=== PATIENT | female | born 1955 | race Caucasian/White ===

== ENCOUNTER → 2018-03-04 | Outpatient (CLI) | payer OTHER ==
[~2018-03-04] MED LIST: AMIT25; AMIT50; AMIT50 PO; AMITRIPTYLINE PO; ASPI325; ASPI325 PO; ASPI325B; ASPI81EC PO; ATEN50; ATEN50 PO; CLON1 PO; CLOP75; CLOP75 PO; DIAZ5; ENOX40I SC; FLUO10 PO; FLUO20 PO; GABA100 PO; HYDACE10B PO; HYDACE5 PO; HYDACE5325 PO; IRON325 MG PO; ISOMON30; ISOMON30 PO; LEVFLO500 PO; LOVA40; MULVITMIND PO; NIAC500; NITR.4SL SL; OXYACE5T PO; RANI150; RANI150 PO; ROSU10TA PO; ZOLP5 PO
== END | disposition home or self-care (01) ==
LOC: PLD 07:23 → LAB SHORT 07:23
DX: L30.9 Dermatitis, unspecified (principal); L40.9 Psoriasis, unspecified; R70.0 Elevated erythrocyte sedimentation rate; R79.82 Elevated C-reactive protein (CRP); R21 Rash and other nonspecific skin eruption
CPT/HCPCS: 88305; 88312

== ENCOUNTER 2018-05-12 02:22 | Day surgery (SDC) | payer OTHER ==
[~2018-05-12] VITALS: Ht 167.6 cm; Wt 84.0 kg
[~2018-05-12 02:22] MED LIST changes: +ALBU90OI INH; +AMLO5 PO; +ATOR40TA PO; +CLON.1 PO; +GABA400 PO; +LISI5 PO; +METF500C PO; +METO50 PO; +VENL150ER PO
--- NOTE | 2018-05-12 09:00 | NUR ---
PT BACK TO RECOVERY ROOM POST PROCEDURE. SLEEPING, ROUSES EASILY TO VERBAL STIMULI. VSS. RIGHT GROIN SITE C/D/I, TEGADERM IN PLACE. CALL LIGHT IN REACH.
--- NOTE | 2018-05-12 10:17 | NUR ---
PT DOZING INTERMITTENTLY. VSS. RIGHT GROIN SITE REMAINS C/D/I. CALL LIGHT IN REACH.
--- NOTE | 2018-05-12 10:46 | NUR ---
PT ASSISTED TO REPOSITION IN BED. HEAD OF BED ELEVATED 30 DEGREES. PT DENIES OTHER NEEDS. RIGHT GROIN SITE SOFT AND NON-TENDER. NO BLEEDING OR SWELLING NOTED. VSS. CALL LIGHT IN REACH.
--- NOTE | 2018-05-12 11:18 | NUR ---
PT SITTING ON SIDE OF BED, EATING BREAKFAST. COFFEE GIVEN TO PT PER REQUEST WELL. RIGHT GROIN SITE REMAINS C/D/I AND SOFT AND NON-TENDER WHILE SITTING.
--- NOTE | 2018-05-12 11:44 | NUR ---
PT AMBULATED TO THE BATHROOM WITHOUT DIFFICULTY. RIGHT GROIN SITE C/D/I, NO BLEEDING OT SWELLING. PT GIVEN WRITTEN AND VERBAL DISCHARGE INSTRUCTIONS, VERBALIZED UNDERSTANDING.
--- NOTE | 2018-05-12 12:14 | NUR ---
IV DC'D, CATH INTACT. PT OUT TO CAR VIA W/C IN NO ACUTE DISTRESS.
== END 2018-05-12 12:15 | disposition home or self-care (01) ==
LOC: MHTC 02:22
DX: I77.1 Stricture of artery (principal); Z96.89 Presence of other specified functional implants
CPT/HCPCS: 36222; 36225; 36226; 36245; 75625; 75716; 99152; 99153; C1760; C1769; C1887; C1894; J1644; J2250; J3010; J7030; Q9967

== ENCOUNTER → 2018-12-18 | Outpatient (CLI) | payer OTHER ==
[2018-12-24 11:07] LABS: COTININE None Detected (.); NICOTINE None Detected (.)
== END | disposition home or self-care (01) ==
LOC: LAB 09:27 → LAB SHORT 09:27 → LAB FUT 12-17 10:30
PROVIDERS: Radiology Diagnostic Radiology
DX: F17.218 Nicotine dependence, cigarettes, with other nicotine-induced disorders (principal)
CPT/HCPCS: G0480

== ENCOUNTER 2019-03-24 07:36 | Day surgery (SDC) | payer OTHER ==
[~2019-03-24] VITALS: Ht 167.6 cm; Wt 83.0 kg
[~2019-03-24 07:36] MED LIST changes: +Ventolin/Prove6.7 GM INH
--- NOTE | 2019-03-24 15:22 | NUR ---
DISCHARGE PT REMAINED A&OX3 AND HAD A PERIOD OF TIME DURING RECOVERY WITH BACK AND LEG PAIN-REPOSITIONING AND MEDICATION PER MAR BROUGHT WHAT PATIENT STATED TO A TOLLERABLE LEVEL OF 07/12. PT AMBULATED TO RESTROOM WITH STEADY GAIT AND DRESSED SELF INDEPENDANTLY. IV DC'D WITH TIP IN TACT. DISCHARGE PAPERWORK GONE OVER WITH PT. PT VERBALLY STATED THE UNDERSTANDING OF THE DISCHARGE EDUCATION AND DENIED ANY QUESTIONS AT THIS TIME. PT WHEELED OUT BY THIS NURSE. DR. ANDERSON'S OFFICE CALLED FOR FOLLOW-UP APPOINTMENT-NO ANSWER, LEFT MESSAGE.
== END 2019-03-24 15:45 | disposition home or self-care (01) ==
LOC: MHTC 07:36
DX: I70.213 Atherosclerosis of native arteries of extremities with intermittent claudication, bilateral legs (principal); I10 Essential (primary) hypertension; E78.5 Hyperlipidemia, unspecified; I25.2 Old myocardial infarction; I25.10 Atherosclerotic heart disease of native coronary artery without angina pectoris; G47.33 Obstructive sleep apnea (adult) (pediatric); F32.9 Major depressive disorder, single episode, unspecified; F41.9 Anxiety disorder, unspecified; I70.8 Atherosclerosis of other arteries; Z87.891 Personal history of nicotine dependence; Z88.8 Allergy status to other drugs, medicaments and biological substances; Z91.018 Allergy to other foods; Z79.02 Long term (current) use of antithrombotics/antiplatelets; Z79.899 Other long term (current) drug therapy; Z79.82 Long term (current) use of aspirin
CPT/HCPCS: 37221; 37225; 75625; 75716; 75774; 82947; 85347; 99152; 99153; A9270-GY; C1714; C1769; C1874; C1884; C1887; C1894; C2623; J1644; J2250; J3010; J7030; J7040; Q9967

== ENCOUNTER → 2019-12-29 | Outpatient (CLI) | payer OTHER ==
[2020-01-07 15:01] LABS: Stool Occult Bld Immuno 1 Negative (NEGATIVE)
== END | disposition home or self-care (01) ==
LOC: LAB 09:16 → LAB SHORT 09:16
PROVIDERS: Nurse Practitioner Family
DX: Z12.11 Encounter for screening for malignant neoplasm of colon (principal)
CPT/HCPCS: G0328

== ENCOUNTER 2021-04-03 06:02 | Day surgery (SDC) | payer MEDICARE, OTHER ==
[~2021-04-03] VITALS: Ht 167.6 cm; Wt 91.0 kg
--- NOTE | 2021-04-03 10:28 | NUR ---
PT LAYING IN BED FLAT DRINKING COFFEE POST PROCEDURE. PT DENIES ANY PAIN. L FEMORAL ARTERY ACCESS SITE STABLE WITH NNO BLEEDING, OOZING OR HEMATOMA NOTED. WILL CONTINUE TO MONITOR.
--- NOTE | 2021-04-03 12:01 | NUR ---
DISCHARGE PT DRESSED SELF WITH NO COMPLICATIONS. PT L FEMORAL SITE WITH NO BLEEDING, OOZING OR HEMATOMA NOTED. PT DENIES ANY PAIN. PT STATES HER UNDERSTANDING OF DC AND SITE CARE INSTRUCTIONS AND DENIES ANY QUESTIONS OR CONCERNS. VSS. IV DCD WITH CATH INTACT. PT TAKEN TO EXIT VIA WHEELCHAIR WHERE RIDE WAITS.
== END 2021-04-03 12:00 | disposition home or self-care (01) ==
LOC: MHTC 06:02
DX: I70.213 Atherosclerosis of native arteries of extremities with intermittent claudication, bilateral legs (principal); I87.2 Venous insufficiency (chronic) (peripheral); I10 Essential (primary) hypertension; I25.2 Old myocardial infarction; Z87.891 Personal history of nicotine dependence; Z91.018 Allergy to other foods; Z91.048 Other nonmedicinal substance allergy status
CPT/HCPCS: 76937; 82947; 99152; 99153; C1760; C1769; C1887; C1894; C2623; J1644; J2250; J3010; J7030; J7050; Q9967

== ENCOUNTER 2021-04-27 16:28 | Inpatient (IN) | payer MEDICARE, OTHER ==
[~2021-04-27] VITALS: Ht 167.6 cm; Wt 81.7 kg
[2021-04-27] MEDS ORDERED: IRBESARTAN300 M3 PO (16:54)
[2021-04-27] MEDS ORDERED: PRAMIPEXOLE D0.25 M1 PO (16:55)
[2021-04-27] MEDS ORDERED: PREGABALIN PO (16:55)
[2021-04-27] MEDS ORDERED: BUPR75 PO (16:56)
[2021-04-27] MEDS ORDERED: POTA10T PO (16:58)
[2021-04-27] MEDS ORDERED: FISH OIL-VIT D1 EACH PO (16:59)
[2021-04-27 17:15] LABS: BASOPHILS ABSOLUTE AUTO 0.08 K/mm3 (0.00-0.23); BASOPHILS PERCENT AUTO 1 % (0-2); EOSINOPHILS ABSOLUTE AUTO 0.03 K/mm3 (0.00-0.68); EOSINOPHILS PERCENT AUTO 0 % (0-6); Hematocrit 39.5 % (33.0-51.0); Hemoglobin 12.2 g/dL (11.5-16.0); IMMATURE GRAN ABSOLUTE AUTO 0.06 K/mm3 (0.00-0.10); IMMATURE GRAN PERCENT AUTO 1 % (0-1); LYMPHOCYTES PERCENT AUTO 15 % (21-46); MONOCYTES ABSOLUTE AUTO 0.76 K/mm3 (0.16-1.47); MONOCYTES PERCENT AUTO 9 % (4-13); Mean Corpuscular HGB 30.2 pg (26.0-34.0); Mean Corpuscular HGB Conc 30.9 g/dL (31.5-36.5); Mean Corpuscular Volume 98 fL (80-100); Mean Platelet Volume 10.6 fL (9.1-12.4); NEUTROPHILS ABSOLUTE AUTO 6.58 K/mm3 (1.96-9.15); NEUTROPHILS PERCENT AUTO 75 % (41-73); Platelet Count 233 K/mm3 (150-400); RDW Coefficient Variation 19.1 % (11.7-14.2); RDW Standard Deviation 68.2 fL (35.1-46.3); Red Blood Cell Count 4.04 M/mm3 (3.80-5.20); White Blood Cell Count 8.81 K/mm3 (4.00-11.30)
[2021-04-27 17:29] LABS: Base Excess Venous -3.7 mmol/L; Bicarbonate Venous 20.6 mmol/L (24.0-30.0); PCO2 Venous 48.8 mmHg (38-42); PO2 Venous 45.3 mmHg (38-42)
[2021-04-27 17:30] LABS: pH Blood Venous 7.28 (7.34-7.37)
[2021-04-27 17:31] LABS: Albumin, Blood 3.6 g/dL (3.4-5.0); Albumin/Globulin Ratio 0.9 (0.8-1.8); Bilirubin, Total 0.7 mg/dL (0.1-1.0); Bun/Creatinine Ratio 33.1 (12.0-20.0); Calcium, Blood 9.1 mg/dL (8.5-10.1); Creatinine, Blood 1.69 mg/dL (0.40-1.00); Potassium, Blood 5.1 mmol/L (3.5-5.5); Total Protein, Blood 7.6 g/dL (6.4-8.2); Troponin I 0.023 ng/mL (0.000-0.040)
[2021-04-27 18:09] LABS: Influenza A, PCR NEGATIVE (NEGATIVE); Influenza B, PCR NEGATIVE (NEGATIVE); Resp Syncytial Virus, PCR NEGATIVE (NEGATIVE); SARS-Cov-2 (COVID-19) PCR, MMC NEGATIVE (NEGATIVE)
--- NOTE | 2021-04-27 22:30 | NUR ---
ADMIT NOTE: 65 YR OLD FEMALE AADMITTED TO FLOOR FROM THE ED WITH DX OF ACUTE COPD WITH HYPOXIA. REPORTEDLY FOUND IN CAR TALKING TO SELF WHEN SHE WENT TO THE STORE. EVIDENTLY PT NEEDS TO BE ON O2 CONTINUOUSLY AND CANT AFFFORD IT AT HOME. WILL ASK FOR A SOCIAL WORK ASSESSMENT FOR HOME O2. ORIENTED TO [facility]. CALL LIGHT IN REACH
--- NOTE | 2021-04-28 03:32 | NUR ---
COMMAND CENTER OFFICER SUMMARY ADMITTED EARLIER IN THE SHIFT WITH EPISODE OF COPD WITH HYPOXIA. PLACED ON O2 PER NC AND HAS BEEN RESTING QUIETLY UNTIL A WHILE AGO. VOICED FEELING BETTER. APPARENTLY UNABLE TO AFFORD O2 AT HOME AND WAS FOUND HYPOXEMIC. WILL ASK AM NURSE TO FOLLOW UP WITH SOCIAL ORK FOR HOME O2. CALL LIGHT IN REACH.
[2021-04-28 05:14] LABS: Bun/Creatinine Ratio 33.8 (12.0-20.0); Calcium, Blood 9.6 mg/dL (8.5-10.1); Creatinine, Blood 1.6 mg/dL (0.40-1.00); Potassium, Blood 5.2 mmol/L (3.5-5.5)
[2021-04-28 08:06] LABS: Base Excess Venous -4.4 mmol/L; Bicarbonate Venous 20.3 mmol/L (24.0-30.0); PO2 Venous 54.6 mmHg (38-42); pH Blood Venous 7.28 (7.34-7.37)
--- NOTE | 2021-04-28 09:20 | NUR ---
AM BLOOD GLUCOSE BLOOD GLUCOSE VALUE AT 0727 ON 04/28/21 WAS 210. RN NOTIFIED.
--- NOTE | 2021-04-28 09:25 | NUR ---
0818- TOLD ARIEL MACKEY FOR ROOM 301 ABOUT BIPAP FOR THIS PATIENT.
--- NOTE | 2021-04-28 19:29 | NUR ---
PT AMBULATES WELL TO THE ROOM WITH SUPERVISION. PT TALKED WHILE SLEEPING. SHE STATESD IT IS NORMAL FOR HER. PT ON 2 L NC. MEDS ADMINISTER PER EMAR. NO ACUTE CHANGES. PT IS PLEASANT AND COOPERATIVE WITH CARE. PT IS RESTING IN BED. CALL LIGHT WITHIN REACH, BED LOWEST POSITION. PT HAS BIPAP ORDER. REPORT GIVEN TO BIG DATA LEAD NURSE
--- NOTE | 2021-04-29 01:49 | NUR ---
THE PATIENT HAS REMOVED HER CPAP SEVERAL TIMES DESATTING INTO THE LOW 80'S. PT O2 BACK ON ADN TITRATED UP TO 3L TO MAINTAIN SATURATION OF 90%.
--- NOTE | 2021-04-29 04:28 | NUR ---
PATIENT TRIALED THE CPAP LAST NIGHT AND WAS UNABLE TO TOLERATE. O2 SATS DROPPED ON 2L/NC. O2 TITRATED TO 3L/NC. PATIENT TALKS IN SLEEP AND DREAMS AWAKENING SUDDENLY. SLEPT OFF AND ON. VITALS REVIEWED. WILL CONTINUE TO MONITOR.
[2021-04-29 06:11] LABS: Albumin, Blood 3.4 g/dL (3.4-5.0); Anion Gap 7 mmol/L (6-16); Blood Urea Nitrogen 53 mg/dL (8-24); Bun/Creatinine Ratio 40.2 (12.0-20.0); CO2, Blood 24 mmol/L (21-32); Calcium, Blood 8.9 mg/dL (8.5-10.1); Chloride, Blood 107 mmol/L (98-108); Creatinine, Blood 1.32 mg/dL (0.40-1.00); Glomerular Filtration Rate 40 (60-); Glucose, Blood 154 mg/dL (70-99); Phosphorus, Blood 3.7 mg/dL (2.5-4.9); Potassium, Blood 4.3 mmol/L (3.5-5.5); Sodium, Blood 138 mmol/L (136-145)
[2021-04-29 08:45] LABS: Base Excess Venous 0.1 mmol/L; Bicarbonate Venous 24.1 mmol/L (24.0-30.0); PCO2 Venous 46.8 mmHg (38-42); PO2 Venous 106 mmHg (38-42); pH Blood Venous 7.35 (7.34-7.37)
--- NOTE | 2021-04-29 18:31 | NUR ---
SHIFT SUMMARY PATIENT MEDICATED WITH TYLENOL FOR HEADACHE THIS MORNING. PATIENT DENIES NAUSEA AND SHORTNESS OF BREATH. PATIENT IS INDEPENDENT TO THE BATHROOM. PATIENT IS ON 3L VIA N/C. PATIENT IS MAINTAINING SATS ABOVE 90%. PATIENT DOES DESAT TO LOW 80S WITH ACTIVITY BUT RECOVERS QUICKLY. PATIENT IS EATING AND DRINKING WELL. PATIENT IS EAGER TO GET HOME. PATIENT IS PLEASANT AND COOPERATIVE WITH CARE.
--- NOTE | 2021-04-30 03:52 | NUR ---
PATIENT WAS UNABLE TO TOLERATE CPAP. ON 3 L/NC. WILL NEED HOME O2 EVAL. RECIEVED PRN TYLENOL FOR HEADACHE. VITALS REVIEWED BP ELEVATED SYSTOLICALLY. PATIENT WILL RECIEVE AM BP MEDICATIONS. PATIENT VERBALIZES THAT SHE IS LOOKING FORWARD TO DISCHARGE.
[2021-04-30 08:56] LABS: BASOPHILS ABSOLUTE AUTO 0.01 K/mm3 (0.00-0.23); BASOPHILS PERCENT AUTO 0 % (0-2); EOSINOPHILS PERCENT AUTO 0 % (0-6); Hemoglobin 13.2 g/dL (11.5-16.0); IMMATURE GRAN ABSOLUTE AUTO 0.06 K/mm3 (0.00-0.10); IMMATURE GRAN PERCENT AUTO 1 % (0-1); LYMPHOCYTES ABSOLUTE AUTO 0.93 K/mm3 (0.84-5.20); LYMPHOCYTES PERCENT AUTO 8 % (21-46); MONOCYTES ABSOLUTE AUTO 1.25 K/mm3 (0.16-1.47); MONOCYTES PERCENT AUTO 11 % (4-13); Mean Corpuscular Volume 97 fL (80-100); NEUTROPHILS ABSOLUTE AUTO 8.96 K/mm3 (1.96-9.15); NEUTROPHILS PERCENT AUTO 80 % (41-73); Platelet Count 313 K/mm3 (150-400); RDW Coefficient Variation 18.6 % (11.7-14.2); RDW Standard Deviation 65.7 fL (35.1-46.3); Red Blood Cell Count 4.55 M/mm3 (3.80-5.20); White Blood Cell Count 11.21 K/mm3 (4.00-11.30)
[2021-04-30 09:20] LABS: Albumin, Blood 3.8 g/dL (3.4-5.0); Anion Gap 9 mmol/L (6-16); Blood Urea Nitrogen 40 mg/dL (8-24); CO2, Blood 27 mmol/L (21-32); Calcium, Blood 9.5 mg/dL (8.5-10.1); Chloride, Blood 106 mmol/L (98-108); Creatinine, Blood 1.11 mg/dL (0.40-1.00); Glomerular Filtration Rate 49 (60-); Glucose, Blood 117 mg/dL (70-99); Phosphorus, Blood 3.1 mg/dL (2.5-4.9); Potassium, Blood 4.3 mmol/L (3.5-5.5); Sodium, Blood 142 mmol/L (136-145)
--- NOTE | 2021-04-30 16:03 | NUR ---
DISCHARGE NOTE D/C HOME ORDERS REVIEWED AND IMPLEMENTED. HOME O2 EVAL COMPLETED, PT REQUIRES 4L O2 WITH ACTIVITY. HOME O2 SET UP WITH [facility]. D/C ORDERS, MEDS, EDUCATION AND F/U RECOMENDATIONS REVIEWED WITH PT. PT VERBALIZED UNDERSTANDING. IV REMOVED FROM R WRIST INTACT, PT TOLERATED WELL. PT D/C HOME, EXCORTED OUT VIA W/C AND TRANSPORTED HOME VIA TAXI.
== END 2021-04-30 16:03 | disposition home or self-care (01) | DRG 291 ==
LOC: ER 16:28 → MEDS 16:29 → ENPENDDIS 04-30 11:02 → MEDS 04-30 16:03
PROVIDERS: Emergency Medicine; Family Medicine; ADMIT Internal Medicine
DX: I13.0 Hypertensive heart and chronic kidney disease with heart failure and stage 1 through stage 4 chronic kidney disease, or unspecified chronic kidney disease (principal); J96.21 Acute and chronic respiratory failure with hypoxia; I50.33 Acute on chronic diastolic (congestive) heart failure; J96.22 Acute and chronic respiratory failure with hypercapnia; N17.9 Acute kidney failure, unspecified; E87.2 Acidosis; Z20.822 Contact with and (suspected) exposure to COVID-19; G47.30 Sleep apnea, unspecified; I25.10 Atherosclerotic heart disease of native coronary artery without angina pectoris; F41.8 Other specified anxiety disorders; J43.9 Emphysema, unspecified; E11.22 Type 2 diabetes mellitus with diabetic chronic kidney disease; N18.30 Chronic kidney disease, stage 3 unspecified; G47.33 Obstructive sleep apnea (adult) (pediatric); M79.2 Neuralgia and neuritis, unspecified; E66.9 Obesity, unspecified; Z91.19 Patient's noncompliance with other medical treatment and regimen; Z68.29 Body mass index [BMI] 29.0-29.9, adult; Z87.891 Personal history of nicotine dependence; I25.2 Old myocardial infarction; Z88.8 Allergy status to other drugs, medicaments and biological substances; Z91.018 Allergy to other foods; Z79.82 Long term (current) use of aspirin; Z79.84 Long term (current) use of oral hypoglycemic drugs; Z79.899 Other long term (current) drug therapy
CPT/HCPCS: 0241U; 36415; 71045; 80048; 80053; 80069; 82803; 82947; 83880; 84145; 84484; 85025; 93005; 93010; 94640; 94660; 94760; 94761; 94762; 96374; 96375; 99285-25; A9270; J1644; J1940; J2930

== ENCOUNTER 2021-06-27 00:54 | Day surgery (SDC) | payer MEDICARE, OTHER ==
[~2021-06-27 00:54] MED LIST changes: +BUPR75 PO; +FISH OIL-VIT D1 EACH PO; +IRBESARTAN300 M3 PO; +POTA10T PO; +PRAMIPEXOLE D0.25 M1 PO; +PREGABALIN PO
== END 2021-06-27 22:54 | disposition home or self-care (01) ==
LOC: WOUND 00:54
DX: E11.621 Type 2 diabetes mellitus with foot ulcer (principal); L97.522 Non-pressure chronic ulcer of other part of left foot with fat layer exposed; L97.512 Non-pressure chronic ulcer of other part of right foot with fat layer exposed; E11.42 Type 2 diabetes mellitus with diabetic polyneuropathy; R60.9 Edema, unspecified; E11.8 Type 2 diabetes mellitus with unspecified complications; I87.2 Venous insufficiency (chronic) (peripheral); J44.9 Chronic obstructive pulmonary disease, unspecified; E11.51 Type 2 diabetes mellitus with diabetic peripheral angiopathy without gangrene; I25.10 Atherosclerotic heart disease of native coronary artery without angina pectoris; I25.2 Old myocardial infarction; Z88.8 Allergy status to other drugs, medicaments and biological substances; Z87.891 Personal history of nicotine dependence
CPT/HCPCS: G0463

== ENCOUNTER 2021-07-04 01:53 | Day surgery (SDC) | payer MEDICARE, OTHER | END 2021-07-04 23:42 | disposition home or self-care (01) | LOC: WOUND 01:53 | DX: E11.621 Type 2 diabetes mellitus with foot ulcer (principal); L97.522 Non-pressure chronic ulcer of other part of left foot with fat layer exposed; L97.512 Non-pressure chronic ulcer of other part of right foot with fat layer exposed; E11.42 Type 2 diabetes mellitus with diabetic polyneuropathy; E11.51 Type 2 diabetes mellitus with diabetic peripheral angiopathy without gangrene; I87.2 Venous insufficiency (chronic) (peripheral); J44.9 Chronic obstructive pulmonary disease, unspecified; Z99.81 Dependence on supplemental oxygen | CPT/HCPCS: A9270 ==

== ENCOUNTER 2021-07-18 01:08 | Day surgery (SDC) | payer MEDICARE, OTHER | END 2021-07-18 23:22 | disposition home or self-care (01) | LOC: WOUND 01:08 | DX: E11.621 Type 2 diabetes mellitus with foot ulcer (principal); L97.512 Non-pressure chronic ulcer of other part of right foot with fat layer exposed; L97.522 Non-pressure chronic ulcer of other part of left foot with fat layer exposed; I87.2 Venous insufficiency (chronic) (peripheral); E11.51 Type 2 diabetes mellitus with diabetic peripheral angiopathy without gangrene; E11.42 Type 2 diabetes mellitus with diabetic polyneuropathy; R60.9 Edema, unspecified | CPT/HCPCS: A9270 ==

== ENCOUNTER 2021-07-30 09:04 | Inpatient (IN) | payer MEDICARE, OTHER ==
[~2021-07-30] VITALS: Ht 167.6 cm; Wt 90.3 kg
[2021-07-30 10:00] LABS: Base Excess Venous -0.5 mmol/L; Bicarbonate Venous 24.1 mmol/L (24.0-30.0); PCO2 Venous 37.6 mmHg (38-42); pH Blood Venous 7.41 (7.34-7.37)
[2021-07-30 10:42] LABS: BASOPHILS ABSOLUTE AUTO 0.09 K/mm3 (0.00-0.23); BASOPHILS PERCENT AUTO 1 % (0-2); EOSINOPHILS ABSOLUTE AUTO 0.17 K/mm3 (0.00-0.68); EOSINOPHILS PERCENT AUTO 2 % (0-6); Hemoglobin 12.3 g/dL (11.5-16.0); IMMATURE GRAN ABSOLUTE AUTO 0.04 K/mm3 (0.00-0.10); IMMATURE GRAN PERCENT AUTO 0 % (0-1); LYMPHOCYTES ABSOLUTE AUTO 1.62 K/mm3 (0.84-5.20); LYMPHOCYTES PERCENT AUTO 15 % (21-46); MONOCYTES ABSOLUTE AUTO 1.17 K/mm3 (0.16-1.47); MONOCYTES PERCENT AUTO 10 % (4-13); Mean Corpuscular HGB 29.5 pg (26.0-34.0); Mean Corpuscular HGB Conc 30.8 g/dL (31.5-36.5); Mean Corpuscular Volume 96 fL (80-100); Mean Platelet Volume 9.6 fL (9.1-12.4); NEUTROPHILS ABSOLUTE AUTO 8.12 K/mm3 (1.96-9.15); NEUTROPHILS PERCENT AUTO 72 % (41-73); Platelet Count 240 K/mm3 (150-400); RDW Coefficient Variation 18.9 % (11.7-14.2); RDW Standard Deviation 66.7 fL (35.1-46.3); Red Blood Cell Count 4.17 M/mm3 (3.80-5.20); White Blood Cell Count 11.21 K/mm3 (4.00-11.30)
[2021-07-30 10:47] LABS: Influenza A, PCR NEGATIVE (NEGATIVE); Influenza B, PCR NEGATIVE (NEGATIVE); Resp Syncytial Virus, PCR NEGATIVE (NEGATIVE); SARS-Cov-2 (COVID-19) PCR, MMC NEGATIVE (NEGATIVE)
[2021-07-30 11:34] LABS: Albumin, Blood 3.5 g/dL (3.4-5.0); Albumin/Globulin Ratio 0.9 (0.8-1.8); Bilirubin, Total 0.7 mg/dL (0.1-1.0); Creatinine, Blood 1.05 mg/dL (0.40-1.00); Globulin, Blood 3.8 g/dL (2.2-4.0); Potassium, Blood 3.7 mmol/L (3.5-5.5); Total Protein, Blood 7.3 g/dL (6.4-8.2)
[2021-07-30] MEDS ORDERED: DULO60 PO (12:29)
[2021-07-30] MEDS ORDERED: FURO20 PO (12:30)
[2021-07-30] MEDS ORDERED: FLUTICASONE-SA1 EAC1 INH (12:30)
[2021-07-30] MEDS ORDERED: OLMESARTAN MEDO20 MG PO (12:31)
[2021-07-30] MEDS ORDERED: MELO7.5 PO (12:31)
[2021-07-30] MEDS ORDERED: POTA10T PO (12:32)
[2021-07-30] MEDS ORDERED: TRELEGY ELLIPT1 EACH IH (12:32)
--- NOTE | 2021-07-30 16:47 | NUR ---
WOUND CARE NOTE WOUNDS ON RIGHT SECOND TOE, PAD OF RIGHT FOOT, AND PAD OF LEFT FOOT CLEANSED WITH WOUND CLEANSER AND DRESSED WITH HYDROCOLLOID, AND ALGENATE. HEEL PROTECTORS PLACED ON BOTH HEELS, PHOTOS IN CHART, LIN CLINE AND JOEL SMALLS ASSISTED WITH WOUND CARE.
--- NOTE | 2021-07-30 17:11 | NUR ---
SHIFT SUMMARY PT ARRIVED TO PCU UNIT AT 1415, CARDIZEM DRIP INFUSING AT 20ML/HR THEN TITRATED AT 1430 TO 10ML/HR DUE TO SBP OF 95. SHE IS PLEASANT AND COOPERATIVE WITH CARE, ALERT AND ORIENTED X 4. SHE ARRIVED ON 4L VIA NC BUT SPO2 WAS 85% THEREFOR OXYGEN TITRATED TO 6L NC WITH SPO2 OF 90%. SHE CONTINUS TO DENY FEELING SHORT OF BREATH, DIZZY, NAUSEOUS. SHE ALSO DENIES CHEST PAIN/PRESSURE/ SHE IS NOW ON 5L NC AND SP02 IS 90%. SHE COMPLAINED OF LEG PAIN AND WAS MEDICATED PER EMAR. HR WAS MAINTAINING IN 120-130 SO CARDIZEM TITRATED TO 15ML/HR AT 1610 AND IS STILL INFUSING AT 15ML/HR DUE TO BP READING OF 98/77 (85 MAP) AT 1720. TELE MONITORING STILL SHOWS HR AFIB IN 120-130. SEE PREVIOUS NOTE WEL LAS CHART FOR WOUNDS/WOUND CARE. TROPONIN OF [address] GEORGE, ECHO ORDER IN CHART ORDERS VERIFIED. SHE HAS YET NEEDED TO VOID VIA COMMODE BUT APPEARS STEADY ON FEET WHEN AT BEDSIDE. IV IS IN LEFT UPPER ARM INFUSING. CALL LIGHT IN REACH, WILL CONTINUE TO MONITOR.
--- NOTE | 2021-07-30 17:41 | NUR ---
CARE NOTE HR REMAINS AT 130/131, BP STABLE SO CARDIZEM TITRATED TO 20MG/HR PER EMAR INSTRUCTIONS. WILL CONTINUE TO MONITOR .
--- NOTE | 2021-07-30 20:03 | NUR ---
CALLED DR UMANA REGARDING INCREASE TROPONIN OF 884. NO FURTHER ORDERS.
--- NOTE | 2021-07-30 22:15 | NUR ---
CALLED DR UMANA REGARDNG PT BEING ANXIOUS AND RESTLESS. ONE TIME DOSE OF PO ATIVAN .5MG ORDERED. ENTERED.
[2021-07-31 04:44] LABS: Albumin, Blood 3.4 g/dL (3.4-5.0); Albumin/Globulin Ratio 0.9 (0.8-1.8); Bilirubin, Total 0.4 mg/dL (0.1-1.0); Bun/Creatinine Ratio 18.1 (12.0-20.0); Calcium, Blood 8.6 mg/dL (8.5-10.1); Creatinine, Blood 1.77 mg/dL (0.40-1.00); Globulin, Blood 3.6 g/dL (2.2-4.0); Potassium, Blood 4.4 mmol/L (3.5-5.5)
--- NOTE | 2021-07-31 09:42 | NUR ---
Echocardiogram completed, Stat overread requested.
[2021-07-31 10:25] LABS: International Normalized Ratio 1.11; Prothrombin Time Results 11.6 Sec (9.7-11.5)
[2021-07-31 10:38] LABS: Cholesterol 95 mg/dL (50-200); HDL Cholesterol 32 mg/dL (>39); Low Density Lipoprotein Chol 31 mg/dL (0-110); Magnesium, Blood 1.7 mg/dL (1.6-2.4); Triglycerides 159 mg/dL (30-160); Very Low Density Lipoprot Chol 31 mg/dL (6-32)
[2021-07-31 15:24] LABS: BASOPHILS ABSOLUTE AUTO 0.06 K/mm3 (0.00-0.23); BASOPHILS PERCENT AUTO 1 % (0-2); EOSINOPHILS ABSOLUTE AUTO 0.55 K/mm3 (0.00-0.68); EOSINOPHILS PERCENT AUTO 5 % (0-6); Hematocrit 39.4 % (33.0-51.0); Hemoglobin 11.4 g/dL (11.5-16.0); IMMATURE GRAN ABSOLUTE AUTO 0.04 K/mm3 (0.00-0.10); IMMATURE GRAN PERCENT AUTO 0 % (0-1); LYMPHOCYTES ABSOLUTE AUTO 2.04 K/mm3 (0.84-5.20); LYMPHOCYTES PERCENT AUTO 20 % (21-46); MONOCYTES ABSOLUTE AUTO 1.15 K/mm3 (0.16-1.47); MONOCYTES PERCENT AUTO 11 % (4-13); Mean Corpuscular HGB Conc 28.9 g/dL (31.5-36.5); Mean Corpuscular Volume 100 fL (80-100); Mean Platelet Volume 9.6 fL (9.1-12.4); NEUTROPHILS ABSOLUTE AUTO 6.56 K/mm3 (1.96-9.15); NEUTROPHILS PERCENT AUTO 63 % (41-73); Platelet Count 248 K/mm3 (150-400); RDW Coefficient Variation 18.8 % (11.7-14.2); RDW Standard Deviation 69.2 fL (35.1-46.3); Red Blood Cell Count 3.93 M/mm3 (3.80-5.20)
[2021-07-31 16:43] LABS: Influenza A, PCR NEGATIVE (NEGATIVE); Influenza B, PCR NEGATIVE (NEGATIVE); Resp Syncytial Virus, PCR NEGATIVE (NEGATIVE); SARS-Cov-2 (COVID-19) PCR, MMC NEGATIVE (NEGATIVE)
--- NOTE | 2021-07-31 17:38 | NUR ---
SHIFT SUMMARY PT HAS BEEN RESTING IN ROOM. PT HAD AN ECHOCARDIOGRAM IN ROOM AND WAS TRANSPORTED TO IMAGING, PT TOLERATED THESE WELL WITH NO NEW SHORTNESS OF BREATH OR OTHER SYMPTOMS. PT DENIES PAIN OR DISCOMFORT TODAY AND HAS BEEN ABLE TO REPOSITION SELF FOR COMFORT. PT HAS SLEPT OFF AND ON FOR MOST OF THE DAY. PT HAS AMBULATED TO RESTROOM BY STAND-BY ASSIST ON MORE THAN ONE OCCASION. PT HAD A MOMENT OF UNSTEADINESS AFTER FIRST TRANSITIONING FROM SITTING TO STANDING BUT RECOVERED QUICKLY AND WAS STEADY WHILE WALKING. HEART RATE HAS MAINTAINED APPROXIMATELY 115 BPM SINUS TACHYCARDIA AND SBP HAS RANGED 89-128. POST-ECHO, BLOOD PRESSURE READINGS WERE CHANGED FROM THE RUE TO THE LUE WHICH WOULD READ HIGHER AND MORE CONSISTENT.
[2021-07-31 19:38] LABS: PCO2 Arterial 57.3 mmHg (35-45); PO2 Arterial 82.9 mmHg (80-100); pH Blood Arterial 6.96 (7.35-7.45)
[2021-07-31 19:57] LABS: BASOPHILS ABSOLUTE AUTO 0.05 K/mm3 (0.00-0.23); BASOPHILS PERCENT AUTO 0 % (0-2); EOSINOPHILS ABSOLUTE AUTO 0.41 K/mm3 (0.00-0.68); EOSINOPHILS PERCENT AUTO 4 % (0-6); Hemoglobin 9.3 g/dL (11.5-16.0); IMMATURE GRAN ABSOLUTE AUTO 0.09 K/mm3 (0.00-0.10); IMMATURE GRAN PERCENT AUTO 1 % (0-1); LYMPHOCYTES PERCENT AUTO 25 % (21-46); MONOCYTES ABSOLUTE AUTO 1.13 K/mm3 (0.16-1.47); MONOCYTES PERCENT AUTO 10 % (4-13); Mean Corpuscular HGB 29.9 pg (26.0-34.0); Mean Corpuscular HGB Conc 28.2 g/dL (31.5-36.5); Mean Platelet Volume 10.1 fL (9.1-12.4); NEUTROPHILS ABSOLUTE AUTO 6.83 K/mm3 (1.96-9.15); NEUTROPHILS PERCENT AUTO 60 % (41-73); NRBC ABSOLUTE 0.02 K/mm3 (0.00-0.02); NRBC Auto 0.2 /100 WBC (0.0-0.2); Platelet Count 202 K/mm3 (150-400); RDW Coefficient Variation 18.9 % (11.7-14.2); RDW Standard Deviation 74.6 fL (35.1-46.3); Red Blood Cell Count 3.11 M/mm3 (3.80-5.20); White Blood Cell Count 11.31 K/mm3 (4.00-11.30)
[2021-07-31 20:04] LABS: Mean Corpuscular Volume 106 fL (80-100)
--- NOTE | 2021-07-31 20:51 | NUR ---
FALL/BEHAVIORAL INTERVENTIONIST 1847 LIN CLINE RN ASSISTIN PT IN BATHROOM, PT BECAME DIZZY. LIN RN ASSISTED PT TO GROUND. MYRON JAMES TIA RNS TO ROOM TO ASSIST PT UP TO WHEELCHAIR VIA LIUFT AND THEN TRANSFER TO BED. PT TRANSFERRED TO BED. PT COMPLAINING OF SEVERE DYSPNEA, PT SKIN PALE, PT DIAPHORETIC, SEVERELY ANXIOUS. SBP BLOOD PRESSURE <100. IV PULLED DURING DESCENT. ABELINO RN TO ATTEMOT POWERGLIDE PT HAD HEPARIN GTT, FLUIDS, ETC INFUSING. 1899 - PT CONTINUING WITH SEVERE SOB. DIFFICULT TO OBTAIN SPO2 PLETH BUT READINGS SHOWING <90. BP DRASTICALL DIFFERENT IN READINGS ACCORDING TO LOCATION TAKING, ALL LOCATIONS SHOWING NARRW PULSE PRESSURES. 1909 DR PATEL CALLED TO EXAMINE PT. 1924 BEHAVIORAL INTERVENTIONIST CALLED DUE TO PT'S CONTINUED RESPIRATORY DISTRESS, UNSTABLE VS, PALE COLORING/DIAPHORESIS, AND OVERALL OUTLOOK. AT THIS POINT, NRB 15 AND HIFLOW 15L ON PATIENT, SPO2 READINGS STILL SHOWING <90. RURAL MAIL CONTRACTOR ICU GERSON Fernandez TO ROOM. 1927 - DR ANAYA TO ROOM. ASSESSED PT. ORDERS RECEIVED. PT LETHARTGIC AND NOT RESPONDING WELL TO EVEN STERNAL RUB. 1928 - CXR COMPLETE. 1929 NS BOLUS WO STARTED. 1932 POWERGLIDE PLACED, LABS PULLED. ORDERS RECEIVED TO TRANSFER TO ICU. 1943 - PT TO ICU 15. REPORT TO ARTIST SUSPECT. BELONGINGS WITH PT.
[2021-07-31 21:27] LABS: Albumin, Blood 3.1 g/dL (3.4-5.0); Albumin/Globulin Ratio 0.9 (0.8-1.8); Bilirubin, Total 0.3 mg/dL (0.1-1.0); Calcium, Blood 8.1 mg/dL (8.5-10.1); Globulin, Blood 3.5 g/dL (2.2-4.0); Potassium, Blood 5.1 mmol/L (3.5-5.5); Total Protein, Blood 6.6 g/dL (6.4-8.2)
[2021-08-01 04:39] LABS: BASOPHILS ABSOLUTE AUTO 0.06 K/mm3 (0.00-0.23); BASOPHILS PERCENT AUTO 1 % (0-2); EOSINOPHILS ABSOLUTE AUTO 0.29 K/mm3 (0.00-0.68); EOSINOPHILS PERCENT AUTO 2 % (0-6); Hematocrit 37.5 % (33.0-51.0); Hemoglobin 10.9 g/dL (11.5-16.0); IMMATURE GRAN ABSOLUTE AUTO 0.07 K/mm3 (0.00-0.10); IMMATURE GRAN PERCENT AUTO 1 % (0-1); LYMPHOCYTES ABSOLUTE AUTO 1.97 K/mm3 (0.84-5.20); LYMPHOCYTES PERCENT AUTO 15 % (21-46); MONOCYTES ABSOLUTE AUTO 1.62 K/mm3 (0.16-1.47); MONOCYTES PERCENT AUTO 12 % (4-13); Mean Corpuscular HGB 29.3 pg (26.0-34.0); Mean Corpuscular HGB Conc 29.1 g/dL (31.5-36.5); Mean Platelet Volume 9.9 fL (9.1-12.4); NEUTROPHILS ABSOLUTE AUTO 9.14 K/mm3 (1.96-9.15); NEUTROPHILS PERCENT AUTO 70 % (41-73); Platelet Count 248 K/mm3 (150-400); RDW Coefficient Variation 18.8 % (11.7-14.2); RDW Standard Deviation 70.1 fL (35.1-46.3); Red Blood Cell Count 3.72 M/mm3 (3.80-5.20); White Blood Cell Count 13.15 K/mm3 (4.00-11.30)
[2021-08-01 04:42] LABS: Mean Corpuscular Volume 101 fL (80-100)
[2021-08-01 04:46] LABS: Albumin, Blood 3.1 g/dL (3.4-5.0); Albumin/Globulin Ratio 0.9 (0.8-1.8); Bilirubin, Total 0.2 mg/dL (0.1-1.0); Bun/Creatinine Ratio 19.6 (12.0-20.0); Calcium, Blood 8.3 mg/dL (8.5-10.1); Creatinine, Blood 1.99 mg/dL (0.40-1.00); Globulin, Blood 3.4 g/dL (2.2-4.0); Phosphorus, Blood 6.2 mg/dL (2.5-4.9); Potassium, Blood 4.8 mmol/L (3.5-5.5); Total Protein, Blood 6.5 g/dL (6.4-8.2)
--- NOTE | 2021-08-01 06:10 | NUR ---
ASSUMED CARE AT 1999, POST RAPID RESPONSE AND WAS TRANSFERED TO ICU. SHIFT SUMMARY: Neuro - Pt was more somnolent when intially transfered to ICU, after 20 minutes, pt started to wake up and was able to hold conversation. States she does not remember how she fell or why she was transfered. AOX4, pleasant and cooperative. Due to the fall, MD orders pt to bedrest overnight. Pt does have chronic pain and tingling on all extremities. Right arm more sensitive to touch. Resp - Upon transfer, pt was placed on BiPap immediately. After MD assessment, pt was placed on humidified high flow nasal cannula at 11 L. Oxygen saturations remain stable, does desat when sleeping but pops back up after taking deep breaths. Pt states she wears 4L of oxygen at home and does not wear a CPAP at night. Lung sounds are diminished, with no cough. Cardiac - Cardizem gtt to maintain HR less than 110. Unable to titrate off. HR ranging from low 110's to 120's, still Atrial Flutter. Pulses are palpable. Edematous on lower extremities. Afebrile. Cool to touch. GI/ - No BM. Able to use bedpan. 1x straight catheterization performed 400mL out. Integ - Both feet have multiple wounds with various healing stages. Diabetic foot ulcers per pt hx. Infusions: heparin, cardizem
--- NOTE | 2021-08-01 12:31 | NUR ---
Pt. is in bed and alert. Pt. welcomes my visit. Pt. is pleasant. Seek to establish rapport. Pt displays evidence of engagement and understanding. Pt. was not interested in prayer, but verbalized gratitude for the spiritual care visit.
--- NOTE | 2021-08-01 16:40 | NUR ---
ASSUMPTION OF CARE: Transfer from ICU to PCU. Received report from JERICA Duff. No changed noted from AM assessment. Will continue to monitor until transfer of care to oncoming RN.
--- NOTE | 2021-08-01 18:00 | NUR ---
UPDATE 17:50- Pt requested to use restroom, refusing BSC. Assisted to bathroom by staff. Most recent vitals stable. Pt became diaphoretic with cyanotic lips and c/o nausea. Primary nurse stayed with pt and called for PCU charge nurse assistance. PCU CN promptly at bedside. 17:52- Pt assisted back to bed by staff. Pt continued to be diaphoretic with cyanotic lips and c/o nausea. Vitals taken, stable. Zofran administered x1. CN and primary RN remained at bedside. 17:55- Pt continued to have symptoms noted above, ICU CN contacted by PCU CN to come to bedside to evaluate need for KNIFE BLADE POLISHER. VSS. 17:58- Primary RN, ICU and PCU CN continued to be present at bedside. Pt became bradycardic (HR=40s). Pt unresponsive. Pulses assessed. No pulses noted. Code blue called.
[2021-08-01 18:35] LABS: Hematocrit 43.6 % (33.0-51.0); Hemoglobin 12.5 g/dL (11.5-16.0); Mean Corpuscular HGB 29.9 pg (26.0-34.0); Mean Corpuscular HGB Conc 28.7 g/dL (31.5-36.5); Mean Corpuscular Volume 104 fL (80-100); Mean Platelet Volume 11.5 fL (9.1-12.4); NRBC ABSOLUTE 0.08 K/mm3 (0.00-0.02); NRBC Auto 0.5 /100 WBC (0.0-0.2); Platelet Count 126 K/mm3 (150-400); RDW Coefficient Variation 18.9 % (11.7-14.2); RDW Standard Deviation 73.3 fL (35.1-46.3); Red Blood Cell Count 4.18 M/mm3 (3.80-5.20); White Blood Cell Count 15.13 K/mm3 (4.00-11.30)
[2021-08-01 18:56] LABS: Bun/Creatinine Ratio 19.2 (12.0-20.0); Calcium, Blood 8.4 mg/dL (8.5-10.1); Creatinine, Blood 2.29 mg/dL (0.40-1.00); Magnesium, Blood 2.1 mg/dL (1.6-2.4); Potassium, Blood 5.4 mmol/L (3.5-5.5)
--- NOTE | 2021-08-01 19:19 | NUR ---
CODE GUILLERMO/TRANSFER TO ICU 12 LUCIO LI CALLED AT 1758 TO PCU 2. THIS RN AND FOREST MANAGEMENT PROFESSOR RESPONDED. PT ASHEN AHN AND BLUE IN COLOR, NO RESPIRATIONS OR PULSE NOTED. CPR STARTED. PT INTUBATED IN PCU ROOM BY ER DOC. ROSC OBTAINED, THEN PT TRANSFERED TO ICU ROOM 12 AT 1810. PT THEN BRADYCARDIC AND LOST PULSE AGAIN. MULTIPLE ROUNDS OF EPI GIVEN AND CPR OFF AND ON. SEE CODE BLUE SHEET IN CHART FOR MORE CODE DETAILS. PT WITH EPI INFUSING AT 20 MCG/MIN, LEVOPHED AT 30 MCG/MIN, AND DOPAMINE 20 MCG/KG/MIN. ORDERS FROM DR WEEMS TO NOT ESCALATE PRESSORS. PT VENTILATING WITHOUT DIFFICULTY. CANDELARIA TEMP PROBE PLACED. OGT PLACED. DR WEEMS AT BEDSIDE TO PLACE CENTRAL LINE TO LEFT FEMORAL SITE. PT DAUGHTER CALLED AND NOTIFIED OF PT CONDITION AND IS ON THE WAY TO HOSPITAL. PT DAUGHTER REQUESTED THAT IF PT LOSES PULSE AGAIN TO NOT CONTINUE WITH FURTHER EFFORTS OF CPR. DR WEEMS AWARE. BEDSIDE REPORT GIVEN TO JERICA PERDOMO. ALL QUESTIONS ANSWERED. SEE CODE BLUE SHEET IN CHART FOR SPECIFIC CODE DETAILS.
--- NOTE | 2021-08-01 22:52 | NUR ---
ASSUMED CARE/ SHIFT SUMMARY: PT ACTIVELY CODING AT START OF SHIFT. ROSC ACHIEVED W/ PT IN SR. DR WEEMS AT BEDSIDE TO PLACE L FEMORAL CVC. PT BECAME MORE BRADYCARDIC W/ HR IN 40S- 1 AMP EPI, 1 AMP ATROPINE, 1 AMP KINSEY GLUC, 1 AMP BICARB GIVEN WITHOUT EFFECT. ALL PRESSOR GTTS MAXED. VT ARREST AGAIN- CPR IN PROGRESS <1 MINUTE BEFORE PT'S DAUGHTER ADVISED LOCK INSTALLER DAKOTAH VIA PHONE TO CEASE RESUSCITATION EFFORTS. AFTER HALTING CHEST COMPRESSIONS, PT HAD REGAINED ROSC. HOWEVER, PT CONTINUED TO BECOME MORE BRADYCARDIC AND PULSE FADED IN AND OUT OF PEA. AT 1925, PT BECAME PULSELESS & IN ASYSTOLE. GTTS STOPPED & PT TERMINALLY EXTUBATED. DAUGHTER NOTIFIED. DAUGHTER'S FRIEND CAME TO UNIT TO COLLECT PT'S 2 GOLD & MENDEZ RINGS & 4 GOLD EARRINGS, PT'S PURSE & JACKET & OTHER BELONGINGS. CANDELARIA CATHETER & 2 PIV'S REMOVED. CVC LEFT IN PLACE. HOME COLLECTED PATIENT AT APPROXIMATELY 2230.
== END 2021-08-01 19:25 ==
LOC: ER 09:04 → PCU 09:05 → ER 14:20 → PCU 14:49 → ICUW 07-31 19:44 → PCU 08-01 16:41 → ICUW 08-01 18:19
PROVIDERS: Emergency Medicine; Family Medicine; Hospitalist; Internal Medicine; Nurse Practitioner Acute Care; ADMIT Internal Medicine
PROC: 06HY33Z Insertion of Infusion Device into Lower Vein, Percutaneous Approach (ICD-10-PCS; principal; 2021-07-31)
PROC: 3E02340 Introduction of Influenza Vaccine into Muscle, Percutaneous Approach (ICD-10-PCS; 2021-07-31)
PROC: 5A12012 Performance of Cardiac Output, Single, Manual (ICD-10-PCS; 2021-07-31)
DX: I48.91 Unspecified atrial fibrillation (principal); J96.21 Acute and chronic respiratory failure with hypoxia; I21.4 Non-ST elevation (NSTEMI) myocardial infarction; J18.9 Pneumonia, unspecified organism; I50.32 Chronic diastolic (congestive) heart failure; I13.0 Hypertensive heart and chronic kidney disease with heart failure and stage 1 through stage 4 chronic kidney disease, or unspecified chronic kidney disease; J44.0 Chronic obstructive pulmonary disease with (acute) lower respiratory infection; E87.2 Acidosis; E66.01 Morbid (severe) obesity due to excess calories; E11.22 Type 2 diabetes mellitus with diabetic chronic kidney disease; N18.30 Chronic kidney disease, stage 3 unspecified; G47.33 Obstructive sleep apnea (adult) (pediatric); Z20.822 Contact with and (suspected) exposure to COVID-19; I95.9 Hypotension, unspecified; E86.1 Hypovolemia; T50.2X5A Adverse effect of carbonic-anhydrase inhibitors, benzothiadiazides and other diuretics, initial encounter; E78.00 Pure hypercholesterolemia, unspecified; I46.9 Cardiac arrest, cause unspecified; R57.0 Cardiogenic shock; F17.210 Nicotine dependence, cigarettes, uncomplicated; I27.20 Pulmonary hypertension, unspecified; Z96.642 Presence of left artificial hip joint; I25.10 Atherosclerotic heart disease of native coronary artery without angina pectoris; F41.9 Anxiety disorder, unspecified; F32.A Depression, unspecified; I25.2 Old myocardial infarction; Z68.35 Body mass index [BMI] 35.0-35.9, adult; Z98.890 Other specified postprocedural states; Z91.048 Other nonmedicinal substance allergy status; Z99.81 Dependence on supplemental oxygen; Z90.710 Acquired absence of both cervix and uterus; Z88.8 Allergy status to other drugs, medicaments and biological substances; Z90.89 Acquired absence of other organs; Z79.82 Long term (current) use of aspirin; Z79.84 Long term (current) use of oral hypoglycemic drugs; Z79.899 Other long term (current) drug therapy; Z91.19 Patient's noncompliance with other medical treatment and regimen; Z23 Encounter for immunization
CPT/HCPCS: 0241U; 31500; 36415; 36556; 36600; 71045; 71260; 80048; 80053; 80061; 82803; 82947; 83605; 83735; 83880; 84100; 84145; 84443; 84484; 85025; 85027; 85379; 85610; 85730; 87040; 90686; 92950; 93005; 93010; 93306; 94002; 94640; 94660; 94664; 94760; 94762; 96365; 96366; 96367; 96375; 96376; 99285-25; A9270; C1751; G0008; G0378; J0330; J0456; J0461; J0696; J1265; J1644; J1940; J2405; J3010; J3475; J7030; J7050; Q9967